=== PATIENT | female | born 1980 | race Caucasian/White ===

== ENCOUNTER 2017-05-22 10:43 | Outpatient (CLI) | payer OTHER | END 2017-05-22 10:50 | disposition home or self-care (01) | LOC: TOM 10:43 | DX: R10.9 Unspecified abdominal pain (principal) ==

== ENCOUNTER 2017-09-05 15:12 | Emergency (ER) | payer OTHER ==
[~2017-09-05] VITALS: Ht 157.5 cm; Wt 61.7 kg
[2017-09-06] MEDS ORDERED: ZANTAC300 MG PO (05:49)
[2017-09-06] MEDS ORDERED: ZOFRAN4 MG PO (05:49)
[2017-09-06] MEDS ORDERED: DICY20TA PO (05:49)
[2017-09-06] MEDS ORDERED: KETOROLAC TROME10 MG PO (05:49)
== END 2017-09-06 06:19 | disposition home or self-care (01) ==
LOC: ER 15:12
DX: K52.89 Other specified noninfective gastroenteritis and colitis (principal); R10.31 Right lower quadrant pain

== ENCOUNTER 2024-02-25 09:27 | Day surgery (SDC) | payer OTHER ==
[2024-02-22 09:03] LABS: HEMATOCRIT 32.1 % (36.0-45.00); HEMOGLOBIN 10.4 g/dL (12.0-15.00); MEAN CELL VOLUME 71.8 fL (80.00-100.00); MEAN CORPUSCULAR HEMOGLOBIN 23.2 pg (27.00-32.0); MEAN CORPUSCULAR HGB CONC 32.3 g/dl (32.0-36.0); PLATELET COUNT 247 K/uL (150-450); RED BLOOD COUNT 4.47 M/uL (4.00-6.00); RED CELL DISTRIBUTION WIDTH 19.1 % (11.5-14.5)
[2024-02-22 09:04] LABS: URINE APPEARANCE Clear; URINE BILIRRUBIN Negative (NEGATIVE); URINE BLOOD Negative; URINE COLOR Yellow; URINE GLUCOSE Negative (NEGATIVE); URINE KETONE Negative (NEGATIVE); URINE LEUKOCYTE Negative; URINE NITRATE Negative; URINE PROTEIN Negative (NEGATIVE); URINE UROBILINOGEN 0.2 E.U./dl
[2024-02-22 09:09] LABS: URINE BACTERIA 21.3 uL (0.0-1933)
[2024-02-22 09:21] LABS: URINE EPITHELIAL CELLS 0.9 uL (0.0-38.8); URINE RBC 1.6 uL (0.0-20.8); URINE WBC 0.3 uL (0.0-23.2)
[2024-02-22 09:40] LABS: INR 1.02; PARTIAL THROMBOPLASTIN TIME 27.9 SECONDS (22.0-34.0); PROTHROMBIN TIME 11.1 SECONDS (9.0-11.5)
[2024-02-22 09:41] LABS: CALCIUM 9.1 mg/dL (8.5-10.1); CREATININE SERUM 0.68 mg/dL (0.55-1.02); GFR 94.89; POTASSIUM 4.12 mEq/L (3.5-5.1)
[~2024-02-25 09:27] MED LIST: DICY20TA PO; KETOROLAC TROME10 MG PO; ZANTAC300 MG PO; ZOFRAN4 MG PO
[2024-02-25] MEDS ORDERED: TRAMADOL HCL50 MG PO (11:42)
[2024-02-25] MEDS ORDERED: MIRALAX17 GM PO (11:42)
[2024-02-25] MEDS ORDERED: KETO10TA2 PO (11:42)
[2024-02-25] MEDS ORDERED: TYLENOL ARTHRI650 MG PO (11:42)
[2024-02-25] MEDS ORDERED: CIPROFLOXACIN IN 5 % DEXTROSE 400 MG/200 ML PIGGYBAG IV ONE (13:00)
[2024-02-25] MEDS ORDERED: BUPIVACAINE HCL 30 ML VIAL IV ONE (13:00)
[2024-02-25] MEDS ORDERED: KETOROLAC TROMETHAMINE 30 MG VIAL IV ONE (13:00)
[2024-02-25] MEDS ORDERED: ONDANSETRON HCL 2 MG/ML VIAL IV ONE (16:05)
[2024-02-25] MEDS ORDERED: MEPERIDINE HCL 25 MG/ML AMPUL IV ONE (16:10)
== END 2024-02-25 17:00 | disposition home or self-care (01) ==
LOC: CIR.AMB 09:27
PROVIDERS: ATTEND Surgery
DX: K42.0 Umbilical hernia with obstruction, without gangrene (principal); K43.6 Other and unspecified ventral hernia with obstruction, without gangrene; Z88.0 Allergy status to penicillin
CPT/HCPCS: 49594; C1781